=== PATIENT | female | born 1975 | race Hispanic/Latino ===

== ENCOUNTER 2017-09-23 15:20 | Emergency (ER) | payer OTHER ==
[2017-09-23 16:46] LABS: Absolute Lymphocytes (CBC) 1.7 K/uL (0.7-4.9); Absolute Monocytes 0.6 K/uL (0.1-1.3); Absolute Neutrophil 8.1 K/uL (1.8-8.0); Basophils % 0.6 % (0-1.3); Eosinophils % 0.4 % (0-4.4); Hematocrit 48.7 % (36.0-45.0); Lymphocytes % 16.4 % (15.3-44.8); MCH 30.2 pg (27.0-35.0); MPV 12.2 fL (7.6-11.3); Monocytes % 5.3 % (3.3-12.3); RBC Red Blood Cell Count 5.41 M/uL (3.86-4.86)
[2017-09-23 16:56] LABS: Glucose Level 135 mg/dL (65-120)
[2017-09-23] MEDS ORDERED: PANTOPRAZOLE 40 MG INJ ONE (16:56)
[2017-09-23] MEDS ORDERED: NA CHLORIDE 0.9% 1,000 ML ONE (16:56)
[2017-09-23 17:03] LABS: ALT/SGPT 37 IU/L (10-60); AST/SGOT 27 IU/L (10-42); Albumin 4.6 g/dL (3.2-5.5); Alkaline Phosphatase 54 IU/L (42-121); BUN Blood Urea Nitrogen 9 mg/dL (6-20); Bilirubin Direct 0.2 mg/dL (0-0.2); Bilirubin Total 1.2 mg/dL (0.3-1.2); Glomerular Filtration Rate > 90 mL/min (=/>90); Protein, Total 8.1 g/dL (6.0-8.3)
[2017-09-23 17:09] LABS: Bicarbonate 28 mEq/L (21-31); Sodium Level 137 mEq/L (135-145)
[2017-09-23 17:31] LABS: Potassium 2.7 mEq/L (3.6-5.0)
--- NOTE | 2017-09-23 17:45 | RAD REPORT ---
EXAM DESCRIPTION: RAD - Chest Pa And Lat (2 Views) - 09/23/2017 4:53 pm CLINICAL HISTORY: Chest pain. COMPARISON: 08/15/2011 FINDINGS: The lungs are clear. The heart is normal in size. No displaced fractures. IMPRESSION: No acute or concerning finding suspected.
[2017-09-23] MEDS ORDERED: POTASSIUM CL SA 10 MEQ TAB PO ONE (18:03)
[2017-09-23] MEDS ORDERED: KCL 20 MEQ/100 mL IVPB 20 MEQ/100 ML BAG IV ONE (18:04)
--- NOTE | 2017-09-23 19:56 | ER ---
Nurse's Notes [facility] Name: Ami Will Age: 42 yrs Sex: Female : 1975 Arrival Date: 09/23/2017 Time: 15:20 Bed 8 Private MD: Chantel Corona K Diagnosis: Chest pain, unspecified;Hypokalemia Presentation: 09/23 15:28 Presenting complaint: Patient states: Chest tightness and nausea x 1 hr. Pain does not hb radiate. Denies SOB. Hx GERD, hiatal hernia. Transition of care: patient was not received from another setting of care. Onset of symptoms was September 23, 2017. Care prior to arrival: None. 15:28 Method Of Arrival: Ambulatory hb 15:28 Acuity: SANTIAGO 3 hb Triage Assessment: 15:29 General: Appears in no apparent distress. Behavior is calm, cooperative. Pain: Pain hb currently is 4 out of 10 on a pain scale. Neuro: Level of Consciousness is awake, alert, obeys commands, Oriented to person, place, time, situation. Cardiovascular: Capillary refill < 3 seconds Patient's skin is warm and dry. Respiratory: Airway is patent Respiratory effort is even, unlabored, Respiratory pattern is regular, symmetrical. 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 - Social history:: Smoking status: Patient/guardian denies using tobacco. Screenin:32 Abuse screen: Denies threats or abuse. Nutritional screening: No deficits noted. la1 Tuberculosis screening: No symptoms or risk factors identified. Fall Risk None identified. Assessment: 16:31 General: Appears in no apparent distress. Behavior is calm, cooperative. Pain: la1 Complains of pain in chest Pain does not radiate. Pain currently is 4 out of 10 on a pain scale. Pain began 2 hours ago. Neuro: Level of Consciousness is awake, alert, obeys commands, Oriented to person, place, time, situation. Cardiovascular: Heart tones S1 S2 present Capillary refill < 3 seconds Patient's skin is warm and dry. Respiratory: Airway is patent Respiratory effort is even, unlabored, Respiratory pattern is regular, symmetrical, Breath sounds are clear bilaterally. GI: No signs and/or symptoms were reported involving the gastrointestinal system. : No signs and/or symptoms were reported regarding the genitourinary system. 17:34 Reassessment: No changes from previously documented assessment. Patient and/or family la1 updated on plan of care and expected duration. Pain level reassessed. Patient is alert, oriented x 3, equal unlabored respirations, skin warm/dry/pink. 18:45 Reassessment: No changes from previously documented assessment. Patient and/or family la1 updated on plan of care and expected duration. Pain level reassessed. Patient is alert, oriented x 3, equal unlabored respirations, skin warm/dry/pink. 20:57 Reassessment: Patient appears in no apparent distress at this time. No changes from la1 previously documented assessment. Patient and/or family updated on plan of care and expected duration. Pain level reassessed. Patient is alert, oriented x 3, equal unlabored respirations, skin warm/dry/pink. Vital Signs: 15:29 BP 178 / 106; Pulse 97; Resp 16; Temp 98.1; Pulse Ox 100% on R/A; Weight 77.11 kg; hb Height 5 ft. 4 in. (162.56 cm); Pain 4/10; 17:48 BP 158 / 90; Pulse 93; Resp 16; Pulse Ox 100% on R/A; la1 18:45 BP 145 / 91; Pulse 84; Resp 16; Pulse Ox 100% on R/A; la1 20:57 BP 151 / 74; Pulse 76; Resp 16; Temp 98.3; Pulse Ox 100% on R/A; la1 15:29 Body Mass Index 29.18 (77.11 kg, 162.56 cm) hb ED Course: 15:20 Patient arrived in ED. as 15:21 Chantel Corona MD is Private Physician. as 15:29 Triage completed. hb 15:29 Arm band placed on right wrist. hb 15:33 EKG completed in triage. Results shown to MD. hb 16:20 Azul Fierro [facility]-C [facility]. snw 16:20 Jessee Chung MD is Attending Physician. snw 16:20 Jostin Hamm, RN is Primary Nurse. la1 16:32 Placed in gown. Bed in low position. Call light in reach. court monitor on. Pulse ox la1 on. NIBP on. 16:32 No provider procedures requiring assistance completed. Inserted saline lock: 22 gauge la1 in left antecubital area, using aseptic technique. Blood collected. Patient maintains SpO2 saturation greater than 95% on room air. 16:52 Chest Pa And Lat (2 Views) XRAY In Process Unspecified. EDMS 16:53 Patient taken to an exam room, via wheelchair, Patient moved back from radiology. kp1 16:53 X-ray completed. Patient tolerated procedure well. kp1 19:54 Chatnel Corona MD is Referral Physician. snw 20:58 IV discontinued, intact, bleeding controlled, No redness/swelling at site. Pressure la1 dressing applied. Administered Medications: 16:41 Drug: NS 0.9% 1000 ml Route: IV; Rate: 75 ml/hr; Site: left antecubital; la1 20:58 Follow up: IV Status: Completed infusion la1 16:41 Drug: ProTONIX 40 mg Route: IVP; Site: left antecubital; la1 18:57 Follow up: Response: No adverse reaction la1 17:47 Drug: Potassium Chloride 20 mEq Route: IV; Rate: calculated rate; Site: left la1 antecubital; 20:58 Follow up: IV Status: Completed infusion la1 17:48 Drug: Potassium Chloride 40 mEq Route: PO; la1 18:56 Follow up: Response: No adverse reaction la1 Outcome: 19:55 Discharge ordered by MD. snw 20:58 Discharged to home ambulatory. la1 20:58 Condition: stable 20:58 Discharge instructions given to patient, Instructed on discharge instructions, follow up and referral plans. medication usage, Demonstrated understanding of instructions, follow-up care, medications, Prescriptions given X 2. 20:58 Patient left the ED. la1 Signatures: Dispatcher [employer] EDPR Azul Fierro FNP-C LINE WORKER-Rosa Maria Ovalle Lee RN RN la1 Beatriz Acharya RN RN hb Poole, Kathy kp1
--- NOTE | 2017-09-23 19:56 | EDPHYS ---
Physician Documentation [facility] Name: Ami Will Age: 42 yrs Sex: Female : 1975 Arrival Date: 09/23/2017 Time: 15:20 Bed 8 Private MD: Chantel Corona K ED Physician Jessee Chung HPI: 09/23 17:05 This 42 yrs old Female presents to ER via Ambulatory with complaints of Chest snw Pain. 17:05 The patient or guardian reports chest pain that is located primarily in the anterior snw chest wall, bilaterally. Onset: suddenly, one hour post eating, hx of hiatal hernia. The pain does not radiate. Associated signs and symptoms: The patient has no apparent associated signs or symptoms. The chest pain is described as a heaviness, causing indigestion. Duration: The patient or guardian reports a single episode, that is now resolved. Severity of pain: At its worst the pain was mild moderate. EMS care prior to arrival includes: n/a. The patient has not experienced similar symptoms in the past. It is unknown whether or not the patient has recently seen a physician. 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 - Social history:: Smoking status: Patient/guardian denies using tobacco. ROS: 17:04 Constitutional: Negative for fever, chills, and weight loss, Eyes: Negative for injury, snw pain, redness, and discharge, ENT: Negative for injury, pain, and discharge, Neck: Negative for injury, pain, and swelling, Respiratory: Negative for shortness of breath, cough, wheezing, and pleuritic chest pain, Abdomen/GI: Negative for abdominal pain, nausea, vomiting, diarrhea, and constipation, Back: Negative for injury and pain, : Negative for injury, bleeding, discharge, and swelling, MS/Extremity: Negative for injury and deformity, Skin: Negative for injury, rash, and discoloration, Neuro: Negative for headache, weakness, numbness, tingling, and seizure. 17:04 Cardiovascular: Positive for chest pain. Exam: 17:04 Constitutional: This is a well developed, well nourished patient who is awake, alert, snw and in no acute distress. Head/Face: Normocephalic, atraumatic. Eyes: Pupils equal round and reactive to light, extra-ocular motions intact. Lids and lashes normal. Conjunctiva and sclera are non-icteric and not injected. Cornea within normal limits. Periorbital areas with no swelling, redness, or edema. ENT: Nares patent. No nasal discharge, no septal abnormalities noted. Tympanic membranes are normal and external auditory canals are clear. Oropharynx with no redness, swelling, or masses, exudates, or evidence of obstruction, uvula midline. Mucous membranes moist. Neck: Trachea midline, no thyromegaly or masses palpated, and no cervical lymphadenopathy. Supple, full range of motion without nuchal rigidity, or vertebral point tenderness. No Meningismus. Chest/axilla: Normal chest wall appearance and motion. Nontender with no deformity. No lesions are appreciated. Cardiovascular: Regular rate and rhythm with a normal S1 and S2. No gallops, murmurs, or rubs. Normal PMI, no JVD. No pulse deficits. Respiratory: Lungs have equal breath sounds bilaterally, clear to auscultation and percussion. No rales, rhonchi or wheezes noted. No increased work of breathing, no retractions or nasal flaring. Abdomen/GI: Soft, non-tender, with normal bowel sounds. No distension or tympany. No guarding or rebound. No evidence of tenderness throughout. Negative Miramontes's Back: No spinal tenderness. No costovertebral tenderness. Full range of motion. Skin: Warm, dry with normal turgor. Normal color with no rashes, no lesions, and no evidence of cellulitis. MS/ Extremity: Pulses equal, no cyanosis. Neurovascular intact. Full, normal range of motion. Neuro: Awake and alert, GCS 15, oriented to person, place, time, and situation. Cranial nerves II-XII grossly intact. Motor strength 5/5 in all extremities. Sensory grossly intact. Cerebellar exam normal. Normal gait. Vital Signs: 15:29 BP 178 / 106; Pulse 97; Resp 16; Temp 98.1; Pulse Ox 100% on R/A; Weight 77.11 kg; hb Height 5 ft. 4 in. (162.56 cm); Pain 4/10; 17:48 BP 158 / 90; Pulse 93; Resp 16; Pulse Ox 100% on R/A; la1 18:45 BP 145 / 91; Pulse 84; Resp 16; Pulse Ox 100% on R/A; la1 20:57 BP 151 / 74; Pulse 76; Resp 16; Temp 98.3; Pulse Ox 100% on R/A; la1 15:29 Body Mass Index 29.18 (77.11 kg, 162.56 cm) hb MDM: 16:20 Patient medically screened. snw 19:57 ECG:. Data reviewed: vital signs, nurses notes, lab test result(s), EKG, radiologic snw studies. Counseling: I had a detailed discussion with the patient and/or guardian regarding: the historical points, exam findings, and any diagnostic results supporting the discharge/admit diagnosis, the presence of at least one elevated blood pressure reading (>120/80) during this emergency department visit, lab results, radiology results, the need for outpatient follow up, to return to the emergency department if symptoms worsen or persist or if there are any questions or concerns that arise at home. Response to treatment: the patient's symptoms have markedly improved after treatment. Special discussion: Based on the patient's history, exam, and Dx evaluation, there is no indication for emergent intervention or inpatient Tx. It is understood by the patient/guardian that if the Sx's persist or worsen they need to return immediately for re-evaluation. I have referred the patient to see his PCP for further evaluation of high blood pressure. Based on the history and exam findings, there is no indication for further emergent testing or inpatient evaluation. I discussed with the patient/guardian the need to see the primary care provider for further evaluation of the symptoms. 09/23 16:24 Order name: CBC with Diff; Complete Time: 16:52 snw 09/23 16:24 Order name: Chem 7; Complete Time: 17:32 snw 09/23 16:24 Order name: Troponin (emerg Dept Use Only); Complete Time: 17:06 snw 09/23 16:24 Order name: Chest Pa And Lat (2 Views) XRAY; Complete Time: 17:49 snw 09/23 16:24 Order name: LFT's; Complete Time: 17:32 snw 09/23 15:31 Order name: EKG - Nurse/Tech; Complete Time: 15:46 hb 09/23 15:31 Order name: EKG; Complete Time: 15:32 hb 09/23 17:04 Order name: Misc. Order: please change ivf rate to bolus; Complete Time: 17:06 snw Administered Medications: 16:41 Drug: NS 0.9% 1000 ml Route: IV; Rate: 75 ml/hr; Site: left antecubital; la1 20:58 Follow up: IV Status: Completed infusion la1 16:41 Drug: ProTONIX 40 mg Route: IVP; Site: left antecubital; la1 18:57 Follow up: Response: No adverse reaction la1 17:47 Drug: Potassium Chloride 20 mEq Route: IV; Rate: calculated rate; Site: left la1 antecubital; 20:58 Follow up: IV Status: Completed infusion la1 17:48 Drug: Potassium Chloride 40 mEq Route: PO; la1 18:56 Follow up: Response: No adverse reaction la1 Disposition: 09/24 07:06 Co-signature as Attending Physician, Jessee Chung MD. rn Disposition: 09/23/17 19:55 Discharged to Home. Impression: Chest pain, unspecified, Hypokalemia. - Condition is Stable. - Discharge Instructions: Nonspecific Chest Pain, Potassium Content of Foods, Hypertension, Nonspecific Chest Pain, [id number], Hypokalemia. - Prescriptions for Zofran 4 mg Oral Tablet - take 1 tablet by ORAL route every 12 hours As needed; 6 tablet. Potassium Chloride 20 meq Oral Packet - take 1 packet by ORAL route once daily 1 packet in 6 (six) ounces of water or juice; Take after meal; 30 packet. - Work release form, Medication Reconciliation Form, Thank You Letter, Antibiotic Education, Prescription Opioid Use form. - Follow up: Chantel Corona MD; When: 1 week; Reason: Recheck today's complaints, Continuance of care, Re-evaluation by your physician. Follow up: Emergency Department; When: As needed; Reason: Worsening of condition. Signatures: Dispatcher [employer] EDHI Azul Fierro, LOOP TACKER-C LOOP TACKER-Csnw Jessee Chung MD MD rn Attema, Lee, RN RN la1 Beatriz Acharya RN RN Corrections: (The following items were deleted from the chart) 09/23 17:05 17:04 Constitutional: This is a well developed, well nourished patient who is awake, snw alert, and in no acute distress. Head/Face: Normocephalic, atraumatic. Eyes: Pupils equal round and reactive to light, extra-ocular motions intact. Lids and lashes normal. Conjunctiva and sclera are non-icteric and not injected. Cornea within normal limits. Periorbital areas with no swelling, redness, or edema. ENT: Nares patent. No nasal discharge, no septal abnormalities noted. Tympanic membranes are normal and external auditory canals are clear. Oropharynx with no redness, swelling, or masses, exudates, or evidence of obstruction, uvula midline. Mucous membranes moist. Neck: Trachea midline, no thyromegaly or masses palpated, and no cervical lymphadenopathy. Supple, full range of motion without nuchal rigidity, or vertebral point tenderness. No Meningismus. Chest/axilla: Normal chest wall appearance and motion. Nontender with no deformity. No lesions are appreciated. Cardiovascular: Regular rate and rhythm with a normal S1 and S2. No gallops, murmurs, or rubs. Normal PMI, no JVD. No pulse deficits. Respiratory: Lungs have equal breath sounds bilaterally, clear to auscultation and percussion. No rales, rhonchi or wheezes noted. No increased work of breathing, no retractions or nasal flaring. Abdomen/GI: Soft, non-tender, with normal bowel sounds. No distension or tympany. No guarding or rebound. No evidence of tenderness throughout. Back: No spinal tenderness. No costovertebral tenderness. Full range of motion. Skin: Warm, dry with normal turgor. Normal color with no rashes, no lesions, and no evidence of cellulitis. MS/ Extremity: Pulses equal, no cyanosis. Neurovascular intact. Full, normal range of motion. Neuro: Awake and alert, GCS 15, oriented to person, place, time, and situation. Cranial nerves II-XII grossly intact. Motor strength 5/5 in all extremities. Sensory grossly intact. Cerebellar exam normal. Normal gait. snw
[2017-09-23 21:03] VITALS: O2SAT 100
[2017-09-23 21:07] VITALS: BP 151/74; TEMP 98.3
--- NOTE | 2017-09-23 21:47 | EKG ---
Test Date: 2017-09-23 Test Time: 15:42:56 Skein Inspector: CHAKA MEASUREMENT RESULTS: Intervals: Rate: 85 MN: 132 QRSD: 84 QT: 366 QTc: 435 [place]: P: 64 MN: 132 QRS: -30 T: 15 INTERPRETIVE STATEMENTS: Normal sinus rhythm Left axis deviation Inferior infarct, age undetermined Anterolateral infarct, age undetermined Abnormal ECG Compared to ECG 08/14/2011 22:14:28 Left-axis deviation now present Myocardial infarct finding now present T-wave abnormality no longer present Electronically Signed On 09-23-17 21:47:35 CDT by Sunday Felix
== END 2017-09-23 20:58 | disposition home or self-care (01) ==
LOC: ER 15:20
DX: E87.6 Hypokalemia (principal); K21.9 Gastro-esophageal reflux disease without esophagitis
CPT/HCPCS: 36415; 71046; 80048; 80076; 84484; 85025; 93005; 96361; 96365; 96366; 96375; 99285; C9113; J7030

== ENCOUNTER 2018-08-28 19:49 | Emergency (ER) | payer OTHER ==
--- NOTE | 2018-08-28 20:58 | RAD REPORT ---
EXAM DESCRIPTION: CT - [id number] - 08/28/2018 8:50 pm CLINICAL HISTORY: Trauma, head and neck injury. PAIN COMPARISON: <Comparisons> TECHNIQUE: Axial 5 mm thick images of the head were obtained. Axial 2 mm thick images of the cervical spine were obtained with sagittal and coronal reconstruction images generated and reviewed. All CT scans are performed using dose optimization technique as appropriate and may include automated exposure control or mA/KV adjustment according to patient size. FINDINGS: CT HEAD WITHOUT CONTRAST: No acute hemorrhage, hydrocephalus or extra-axial collection is identified.No areas of brain edema or midline shift. The paranasal sinuses and mastoids are clear.The calvarium is intact. CT CERVICAL SPINE WITHOUT CONTRAST: No fracture or subluxation.No prevertebral soft tissues swelling is identified. IMPRESSION: No acute intracranial or cervical spine findings.
--- NOTE | 2018-08-28 21:20 | ER ---
Nurse's Notes [facility] Name: Ami Will Age: 43 yrs Sex: Female : 1975 Arrival Date: 08/28/2018 Time: 19:52 Bed 10 Private MD: Chantel Corona K Diagnosis: Headache Presentation: 08/28 19:59 Presenting complaint: Patient states: "I have a discomfort in the back of my left side jd3 of my head and going through my neck off and on for the past couple of weeks.". Transition of care: patient was not received from another setting of care. Onset of symptoms was August 28, 2018. Risk Assessment: Do you want to hurt yourself or someone else? Patient reports no desire to harm self or others. Initial Sepsis Screen: Does the patient meet any 2 criteria? No. Patient's initial sepsis screen is negative. Does the patient have a suspected source of infection? No. Patient's initial sepsis screen is negative. Care prior to arrival: None. 19:59 Method Of Arrival: Ambulatory j 19:59 Acuity: SANTIAGO 4 jd3 HUMAN RESOURCES CONSULTANT: 20:01 LMP 08/04/2018 jd3 Historical: - Allergies: 20:01 No Known Allergies; jd3 - Home Meds: 20:01 metoprolol tartrate Oral [Active]; Prilosec Oral [Active]; jd3 - PMHx: 20:01 GERD; jd3 - PSHx: 20:01 None; jd3 - Immunization history:: Adult Immunizations up to date. - Social history:: Smoking status: Patient/guardian denies using tobacco, Patient/guardian denies using alcohol, street drugs, The patient lives with family. - Ebola Screening: : Patient negative for fever greater than or equal to 101.5 degrees Fahrenheit, and additional compatible Ebola Virus Disease symptoms. - Family history:: not pertinent. Screenin:40 Abuse screen: Denies threats or abuse. Denies injuries from another. Nutritional ao screening: No deficits noted. Tuberculosis screening: No symptoms or risk factors identified. Fall Risk None identified. Assessment: 20:35 General: Appears in no apparent distress. comfortable, well groomed, well developed, ao Behavior is calm, cooperative, appropriate for age. Pain: Complains of pain in Headache as described by patient. Neuro: Level of Consciousness is awake, alert, obeys commands, Reports headache parietal area. Cardiovascular: Capillary refill < 3 seconds Patient's skin is warm and dry. Rhythm is regular. Respiratory: Airway is patent Respiratory effort is even, unlabored, Respiratory pattern is regular, symmetrical. GI: No deficits noted. Abdomen is non-distended. : No signs and/or symptoms were reported regarding the genitourinary system. EENT: No signs and/or symptoms were reported regarding the EENT system. Derm: Skin is intact, Skin is pink, warm \\T\\ dry. normal, Skin temperature is warm. Musculoskeletal: Circulation, motion, and sensation intact. Range of motion:. 21:30 Reassessment: Dc instructions given to patient and significant other. Patient and ao significant other asked to see the doctor. Dr Mane was notified. No question at this time. DC pending for Dr Mane to see the patient. 21:35 Reassessment: Dr Mane at bedside talking to patient. ao Vital Signs: 20:01 BP 164 / 91; Pulse 84; Resp 16 S; Temp 97.4(TE); Pulse Ox 100% on R/A; Weight 71.67 kg jd3 (R); Height 5 ft. 4 in. (162.56 cm) (R); Pain 5/10; 21:43 Pulse 83; Resp 20; Pulse Ox 98% on R/A; ao 20:01 Body Mass Index 27.12 (71.67 kg, 162.56 cm) jd3 Rebekah Coma Score: 20:42 Eye Response: spontaneous(4). Verbal Response: oriented(5). Motor Response: obeys ma2 commands(6). Total: 15. ED Course: 19:52 Patient arrived in ED. mr 19:53 Chantel Corona MD is Private Physician. mr 20:00 Triage completed. jd3 20:02 Arm band placed on. jd3 20:07 Jas Mane MD is Attending Physician. ma2 20:39 Boston Skinner, SHANON is Primary Nurse. ao 20:[address] via wheelchair. eh 20:41 Patient has correct armband on for positive identification. Pulse ox on. NIBP on. ao 20:49 CT completed. Patient tolerated procedure well. Patient moved back from CT. eh 20:50 CT Head C Spine In Process Unspecified. EDMS 21:42 No provider procedures requiring assistance completed. Patient did not have IV access ao during this emergency room visit. Administered Medications: No medications were administered Outcome: 21:20 Discharge ordered by . carole 21:42 Discharged to home ambulatory. ao 21:42 Condition: stable 21:42 Discharge instructions given to patient, family, Instructed on discharge instructions, follow up and referral plans. Demonstrated understanding of instructions, follow-up care, medications, Prescriptions given X 2. 21:43 Patient left the ED. ao Signatures: Dispatcher [employer] EDCT Greer Disla, Boston Macedo RN RN Titus Chery RN RN Jas Jackson MD MD ma2 Corrections: (The following items were deleted from the chart) 20:06 19:59 Acuity: SANTIAGO 3 jd3 jd3
--- NOTE | 2018-08-28 21:21 | EDPHYS ---
Physician Documentation [facility] Name: Ami Will Age: 43 yrs Sex: Female : 1975 Arrival Date: 08/28/2018 Time: 19:52 Bed 10 Private MD: Chantel Corona K ED Physician Jas Mane HPI: 08/28 20:42 This 43 yrs old Female presents to ER via Ambulatory with complaints of Head ma2 and Neck Discomfort. 20:42 The patient complains of pain to the left shinto. Onset: The symptoms/episode ma2 began/occurred gradually, 2 month(s) ago. Associated signs and symptoms: Pertinent negatives: there are no associated signs or symptoms. altered mental status, dizziness, malaise, neck stiffness, Photophobia vision changes, vision loss, weakness, vertigo. Headache History: Denies prior headaches. The patient has not experienced similar symptoms in the past. here with left scalp pain and tenderness that is intermittent for the last 2 month, used to have neck pain that resolved, scalp pain is worse when she turn to the left side.. right now she has no new symptoms and declined pain control in er.. i explained that is challenging to find a cause of pain here however will rule out emergency and she will need step by step workup that may include c-spine mri as outpatient . 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 - Social history:: Smoking status: Patient/guardian denies using tobacco, Patient/guardian denies using alcohol, street drugs, The patient lives with family. - Ebola Screening: : Patient negative for fever greater than or equal to 101.5 degrees Fahrenheit, and additional compatible Ebola Virus Disease symptoms. - Family history:: not pertinent. ROS: 20:42 Constitutional: Negative for fever, chills, and weight loss. ma2 20:42 Neck: Positive for 20:42 All other systems are negative. Exam: 20:42 Constitutional: This is a well developed, well nourished patient who is awake, alert, ma2 and in no acute distress. Head/Face: Normocephalic, atraumatic. Eyes: Pupils equal round and reactive to light, extra-ocular motions intact. Lids and lashes normal. Conjunctiva and sclera are non-icteric and not injected. Cornea within normal limits. Periorbital areas with no swelling, redness, or edema. ENT: Nares patent. No nasal discharge, no septal abnormalities noted. Tympanic membranes are normal and external auditory canals are clear. Oropharynx with no redness, swelling, or masses, exudates, or evidence of obstruction, uvula midline. Mucous membranes moist. Neck: Trachea midline, no thyromegaly or masses palpated, and no cervical lymphadenopathy. Supple, full range of motion without nuchal rigidity, or vertebral point tenderness. No Meningismus. Chest/axilla: Normal chest wall appearance and motion. Nontender with no deformity. No lesions are appreciated. Cardiovascular: Regular rate and rhythm with a normal S1 and S2. No gallops, murmurs, or rubs. Normal PMI, no JVD. No pulse deficits. Respiratory: Lungs have equal breath sounds bilaterally, clear to auscultation and percussion. No rales, rhonchi or wheezes noted. No increased work of breathing, no retractions or nasal flaring. Abdomen/GI: Soft, non-tender, with normal bowel sounds. No distension or tympany. No guarding or rebound. No evidence of tenderness throughout. Back: No spinal tenderness. No costovertebral tenderness. Full range of motion. MS/ Extremity: Pulses equal, no cyanosis. Neurovascular intact. Full, normal range of motion. Neuro: Awake and alert, GCS 15, oriented to person, place, time, and situation. Cranial nerves II-XII grossly intact. Motor strength 5/5 in all extremities. Sensory grossly intact. Cerebellar exam normal. Normal gait. Vital Signs: 20:01 BP 164 / 91; Pulse 84; Resp 16 S; Temp 97.4(TE); Pulse Ox 100% on R/A; Weight 71.67 kg jd3 (R); Height 5 ft. 4 in. (162.56 cm) (R); Pain 5/10; 21:43 Pulse 83; Resp 20; Pulse Ox 98% on R/A; ao 20:01 Body Mass Index 27.12 (71.67 kg, 162.56 cm) jd3 [place] Coma Score: 20:42 Eye Response: spontaneous(4). Verbal Response: oriented(5). Motor Response: obeys ma2 commands(6). Total: 15. MDM: 20:07 Patient medically screened. ma2 20:42 Differential diagnosis: sinusitis, trigeminal neuralgia, vasomotor headache. ma2 21:19 Data reviewed: vital signs, nurses notes. Counseling: I had a detailed discussion with ma2 the patient and/or guardian regarding: the historical points, exam findings, and any diagnostic results supporting the discharge/admit diagnosis, the presence of at least one elevated blood pressure reading (>120/80) during this emergency department visit, the need for outpatient follow up. 08/28 20:34 Order name: CT Head C Spine; Complete Time: 21:14 ma2 Administered Medications: No medications were administered Disposition: 08/28/18 21:20 Discharged to Home. Impression: Headache. - Condition is Stable. - Discharge Instructions: General Headache Without Cause, Neuropathic Pain. - Prescriptions for Neurontin 300 mg Oral Capsule - take 1 capsule by ORAL route At bedtime; 20 capsule. Reglan 10 mg Oral Tablet - take 1 tablet by ORAL route every 6 hours . take 30 minutes before meals and at bedtime; 100 tablet. - Medication Reconciliation Form, Thank You Letter, Antibiotic Education, Prescription Opioid Use form. - Follow up: Private Physician; When: Tomorrow; Reason: Continuance of care. Signatures: Dispatcher [employer] [place] Cormier RN RN ao Davies, Jonathon, RN RN jd3 Alzahri, Mohammad, MD MD ma2 Corrections: (The following items were deleted from the chart) 21:43 21:20 08/28/2018 21:20 Discharged to Home. Impression: Headache. Condition is Stable. ao Prescriptions for Neurontin 300 mg Oral Capsule - take 1 capsule by ORAL route At bedtime; 20 capsule. and Forms are Medication Reconciliation Form, Thank You Letter, Antibiotic Education, Prescription Opioid Use. Follow up: Private Physician; When: Tomorrow; Reason: Continuance of care. ma2
[2018-08-28 22:21] VITALS: BP 164/91; TEMP 97.4; O2SAT 100
== END 2018-08-28 21:43 | disposition home or self-care (01) ==
LOC: ER 19:49
DX: R51 Headache (principal); K21.9 Gastro-esophageal reflux disease without esophagitis
CPT/HCPCS: 70450; 72125; 99284

== ENCOUNTER 2020-04-30 20:38 | Emergency (ER) | payer BC, OTHER ==
--- OUTSIDE RECORDS SUMMARY | 2020-04-30 20:40 | XMS REPORT | Continuity of Care Document ---
:1975 Author Organization Formerly [facility] t Address [address] [place] [address] Care Team Providers Name Role Phone Lab, Fam Pob I Attending Clinician Unavailable Doctor Unassigned, Name Attending Clinician Unavailable Problems This patient has no known problems. Allergies, Adverse Reactions, Alerts This patient has no known allergies or adverse reactions. Medications This patient has no known medications. Procedures This patient has no known procedures. Encounters Start End Encounter Admission Attending Care Care Encounter Source Date/Time Date/Time Type Type Clinicians Facility Department ID 2020-01-15 2020-01-15 Laboratory Lab, [facility] [id number] 08:26:47 08:46:47 Only Fam Pob I Health [id number] [place] [id number] [place] [id number] [address] 2020-01-15 2020-01-15 Letter Doctor ADORE [id number] 00:00:00 00:00:00 (Out) Unassigned[place] [id number] [place] [facility] [phone] [id number] Results This patient has no known results.
[2020-04-30] MEDS ORDERED: METOCLOPRAMIDE 10 MG/2mL INJ ONE (21:44)
[2020-04-30] MEDS ORDERED: KETOROLAC 30 MG/ML INJ ONE (21:45)
[2020-04-30 21:46] LABS: Urine Blood 3+ (NEG); Urine Glucose NEGATIVE (NEG); Urine Protein NEGATIVE (NEG)
[2020-04-30] MEDS ORDERED: DIPHENHYDRAMINE 50 MG/ML VIAL ONE (21:46)
[2020-04-30 22:06] LABS: Absolute Lymphocytes (CBC) 2.8 K/uL (0.7-4.9); Basophils % 1.4 % (0-1.3); Hematocrit 43.6 % (36.0-45.0); Lymphocytes % 24.1 % (15.3-44.8); MPV 12.1 fL (7.6-11.3); RBC Red Blood Cell Count 4.87 M/uL (3.86-4.86)
[2020-04-30 22:20] LABS: ALT/SGPT 53 U/L (12-78); AST/SGOT 22 U/L (15-37); Albumin 3.9 g/dL (3.4-5.0); Alkaline Phosphatase 71 U/L (45-117); BUN Blood Urea Nitrogen 6 mg/dL (7-18); Bicarbonate 26 mmol/L (21-32); Bilirubin Total 1.3 mg/dL (0.2-1.0); Glucose Level 153 mg/dL (74-106); Potassium 3.5 mmol/L (3.5-5.1); Protein, Total 7.7 g/dL (6.4-8.2); Sodium Level 142 mmol/L (136-145)
[2020-04-30] MEDS ORDERED: CEFTRIAXONE/SWI 1gm 1 GM/10 ML SYR ONE (22:28)
--- NOTE | 2020-04-30 23:27 | ER ---
Nurse's Notes [facility] Name: Ami Will Age: 44 yrs Sex: Female : 1975 Arrival Date: 04/30/2020 Time: 20:40 Bed 14 Private MD: Diagnosis: Strain of muscle, fascia and tendon at neck level;Headache;Urinary tract infection, site not specified Presentation: 04/30 21:04 Chief complaint: Patient states: she has been having head pain and neck pain bb intermittently x 1 month has seen her doctor and is waiting on a referral to a neurologist but the pain is getting worse she has had similar symptoms in the past and was given gabapentin but the pain went away so she quit taking it. Coronavirus screen: At this time, the client does not indicate any symptoms associated with coronavirus-19. Ebola Screen: No symptoms or risks identified at this time. Initial Sepsis Screen: Does the patient meet any 2 criteria? No. Patient's initial sepsis screen is negative. Does the patient have a suspected source of infection? No. Patient's initial sepsis screen is negative. Risk Assessment: Do you want to hurt yourself or someone else? Patient reports no desire to harm self or others. Onset of symptoms was March 2020. 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 - Social history:: Smoking status: Patient denies any tobacco usage or history of. Patient uses alcohol, occasionally. Patient/guardian denies using street drugs. - Family history:: not pertinent. Screenin:15 Abuse screen: Denies threats or abuse. Nutritional screening: No deficits noted. jb4 Tuberculosis screening: No symptoms or risk factors identified. Fall Risk None identified. Assessment: 21:15 General: Appears in no apparent distress. uncomfortable, Behavior is calm, cooperative, jb4 appropriate for age. Pain: Complains of pain in base of the skull and neck Pain does not radiate. Pain currently is 5 out of 10 on a pain scale. Quality of pain is described as throbbing, Pain began 7 days ago. Neuro: Level of Consciousness is awake, alert, obeys commands, Oriented to person, place, time, situation. Cardiovascular: Patient's skin is warm and dry. Respiratory: Airway is patent Respiratory effort is even, unlabored, Respiratory pattern is regular, symmetrical. GI: No signs and/or symptoms were reported involving the gastrointestinal system. : No signs and/or symptoms were reported regarding the genitourinary system. EENT: No signs and/or symptoms were reported regarding the EENT system. Derm: Skin is intact, Skin is pink, warm \T\ dry. Musculoskeletal: Circulation, motion, and sensation intact. Range of motion:. 22:30 Reassessment: Patient appears in no apparent distress at this time. Patient and/or jb4 family updated on plan of care and expected duration. Pain level reassessed. Patient is alert, oriented x 3, equal unlabored respirations, skin warm/dry/pink. 23:49 Reassessment: Patient appears in no apparent distress at this time. Patient and/or jb4 family updated on plan of care and expected duration. Pain level reassessed. Patient is alert, oriented x 3, equal unlabored respirations, skin warm/dry/pink. D/c pending visitation with provider to explain diagnoses. 05/01 00:26 Reassessment: Patient appears in no apparent distress at this time. Patient and/or jb4 family updated on plan of care and expected duration. Pain level reassessed. Patient is alert, oriented x 3, equal unlabored respirations, skin warm/dry/pink. Vital Signs: 04/30 21:04 BP 167 / 88; Pulse 66; Resp 16 S; Temp 97.9(O); Pulse Ox 100% on R/A; Weight 83.91 kg bb (R); Height 5 ft. 4 in. (162.56 cm) (R); Pain 5/10; 22:45 BP 124 / 65; Pulse 67; Resp 16; Pulse Ox 97% on R/A; jb4 05/01 00:00 BP 129 / 77; Pulse 70; Resp 16; Pulse Ox 99% on R/A; jb4 04/30 21:04 Body Mass Index 31.75 (83.91 kg, 162.56 cm) ED Course: 04/30 20:40 Patient arrived in ED. cl3 21:00 Jere Sharpe MD is Attending Physician. qian 21:06 Triage completed. bb 21:07 Arm band placed on Patient placed in an exam room, on a stretcher, on pulse oximetry. bb Family accompanied patient. 21:11 Dayron Freeman, RN is Primary Nurse. jb4 21:15 Patient has correct armband on for positive identification. Bed in low position. Call jb4 light in reach. Side rails up X 1. Pulse ox on. NIBP on. 21:41 Chest Single View XRAY In Process Unspecified. EDMS 21:45 Initial lab(s) drawn, by wv, sent to lab. Inserted saline lock: 20 gauge in right jb4 antecubital area, using aseptic technique. Blood collected. 22:57 CT Head Angio In Process Unspecified. EDMS 22:57 CT Head Brain wo Cont In Process Unspecified. EDMS 22:57 Neck Angio In Process Unspecified. EDMS 23:26 Ciaran Figueroa MD is Referral Physician. [facility] 05/01 00:27 No provider procedures requiring assistance completed. IV discontinued, intact, jb4 bleeding controlled, No redness/swelling at site. Pressure dressing applied. Administered Medications: 04/30 21:55 Drug: TORadol 30 mg Route: IVP; Site: right antecubital; jb4 22:30 Follow up: Response: No adverse reaction; Pain is decreased jb4 21:55 Drug: Benadryl 25 mg Route: IVP; Site: right antecubital; jb4 22:30 Follow up: Response: No adverse reaction; Pain is decreased jb4 21:55 Drug: Reglan 10 mg Route: IVP; Site: right antecubital; jb4 22:30 Follow up: Response: No adverse reaction; Pain is decreased jb4 22:29 Drug: Rocephin 1 grams Route: IV; Rate: per protocol; Site: right antecubital; jb4 22:32 Follow up: IV Status: Completed infusion; IV Intake: 10ml jb4 23:00 Follow up: Response: No adverse reaction jb4 Intake: 22:32 IV: 10ml; Total: 10ml. jb4 Outcome: 23:26 Discharge ordered by . [facility] 05/01 00:28 Discharged to home ambulatory, with family. jb4 Condition: stable Discharge instructions given to patient, Instructed on discharge instructions, follow up and referral plans. medication usage, Demonstrated understanding of instructions, follow-up care, medications, Prescriptions given X 2. 00:29 Patient left the ED. jb4 Signatures: Dispatcher [employer] Jere Levy MD MD cha Ballard, Brenda, RN RN Dayron Samano RN RN jb4 [place] Ramachandran cl3
--- NOTE | 2020-04-30 23:27 | EDPHYS ---
Physician Documentation [facility] Name: Ami Will Age: 44 yrs Sex: Female : 1975 Arrival Date: 04/30/2020 Time: 20:40 Bed 14 Private MD: ED Physician Jere Sharpe HPI: 04/30 21:22 This 44 yrs old Female presents to ER via Ambulatory with complaints of Neck qian Problem. 21:22 This 44 yrs old Female presents to ER via Ambulatory with complaints of Neck qian Problem and right posterior headache. 21:22 The patient or guardian complains of pain, that is acute. The symptoms are located on qian the left parietal area and base of the skull. Onset: The symptoms/episode began/occurred 7 day(s) ago. Context: The problem was sustained at home, The neck injury/problem resulted from from unknown cause. Associated signs and symptoms: The patient has no apparent associated signs or symptoms. The pain does not radiate. Modifying factors: The symptoms are alleviated by nothing. Severity of symptoms: At their worst the symptoms were mild, in the emergency department the symptoms are unchanged. The patient has not experienced similar symptoms in the past. 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 - Social history:: Smoking status: Patient denies any tobacco usage or history of. Patient uses alcohol, occasionally. Patient/guardian denies using street drugs. - Family history:: not pertinent. ROS: 21:22 Constitutional: Negative for fever, chills, and weight loss, Eyes: Negative for injury, qian pain, redness, and discharge, ENT: Negative for injury, pain, and discharge, Neck: Negative for injury, pain, and swelling, Cardiovascular: Negative for chest pain, palpitations, and edema, Respiratory: Negative for shortness of breath, cough, wheezing, and pleuritic chest pain, Abdomen/GI: Negative for abdominal pain, nausea, vomiting, diarrhea, and constipation, Back: Negative for injury and pain, : Negative for injury, bleeding, discharge, and swelling, MS/Extremity: Negative for injury and deformity, Skin: Negative for injury, rash, and discoloration, Psych: Negative for depression, anxiety, suicide ideation, homicidal ideation, and hallucinations, Allergy/Immunology: Negative for hives, rash, and allergies, Endocrine: Negative for neck swelling, polydipsia, polyuria, polyphagia, and marked weight changes, Hematologic/Lymphatic: Negative for swollen nodes, abnormal bleeding, and unusual bruising. 21:22 Neuro: Positive for headache, of the left parietal area. Exam: 21:22 Constitutional: This is a well developed, well nourished patient who is awake, alert, qian and in no acute distress. Head/Face: Normocephalic, atraumatic. Eyes: Pupils equal round and reactive to light, extra-ocular motions intact. Lids and lashes normal. Conjunctiva and sclera are non-icteric and not injected. Cornea within normal limits. Periorbital areas with no swelling, redness, or edema. ENT: Nares patent. No nasal discharge, no septal abnormalities noted. Tympanic membranes are normal and external auditory canals are clear. Oropharynx with no redness, swelling, or masses, exudates, or evidence of obstruction, uvula midline. Mucous membranes moist. Neck: Trachea midline, no thyromegaly or masses palpated, and no cervical lymphadenopathy. Supple, full range of motion without nuchal rigidity, or vertebral point tenderness. No Meningismus. Chest/axilla: Normal chest wall appearance and motion. Nontender with no deformity. No lesions are appreciated. Cardiovascular: Regular rate and rhythm with a normal S1 and S2. No gallops, murmurs, or rubs. Normal PMI, no JVD. No pulse deficits. Respiratory: Lungs have equal breath sounds bilaterally, clear to auscultation and percussion. No rales, rhonchi or wheezes noted. No increased work of breathing, no retractions or nasal flaring. Abdomen/GI: Soft, non-tender, with normal bowel sounds. No distension or tympany. No guarding or rebound. No evidence of tenderness throughout. Back: No spinal tenderness. No costovertebral tenderness. Full range of motion. Skin: Warm, dry with normal turgor. Normal color with no rashes, no lesions, and no evidence of cellulitis. MS/ Extremity: Pulses equal, no cyanosis. Neurovascular intact. Full, normal range of motion. Neuro: Awake and alert, GCS 15, oriented to person, place, time, and situation. Cranial nerves II-XII grossly intact. Motor strength 5/5 in all extremities. Sensory grossly intact. Cerebellar exam normal. Normal gait. Psych: Awake, alert, with orientation to person, place and time. Behavior, mood, and affect are within normal limits. 21:22 Neck: External neck: is normal, C-spine: appears grossly normal, no acute changes, Thyroid: appears normal, no acute changes, Trachea: is midline with no obvious abnormalities, no acute changes, ROM/movement: is normal, Lymph nodes: no appreciated lymphadenopathy. 21:22 Chest/axilla: Exam negative for 21:22 Chest/axilla: Exam negative for acute changes. [facility] 22:17 ECG was reviewed by the Attending Physician. [facility] Vital Signs: 21:04 BP 167 / 88; Pulse 66; Resp 16 S; Temp 97.9(O); Pulse Ox 100% on R/A; Weight 83.91 kg bb (R); Height 5 ft. 4 in. (162.56 cm) (R); Pain 5/10; 22:45 BP 124 / 65; Pulse 67; Resp 16; Pulse Ox 97% on R/A; jb4 05/01 00:00 BP 129 / 77; Pulse 70; Resp 16; Pulse Ox 99% on R/A; jb4 04/30 21:04 Body Mass Index 31.75 (83.91 kg, 162.56 cm) MDM: 04/30 21:09 Patient medically screened. [facility] 21:26 Differential diagnosis: Cervical Raiculopathy cervical strain. Data reviewed: [facility] signs, nurses notes, lab test result(s), EKG, radiologic studies, CT scan, plain films. Data interpreted: cafeteria monitor: rate is 66 beats/min, rhythm is regular, Pulse oximetry: on room air is 66 %. Test interpretation: by ED physician or midlevel provider: ECG, plain radiologic studies. 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 04/30 21:21 Order name: CBC with Diff [facility] 04/30 21:21 Order name: Comprehensive Metabolic Panel [facility] 04/30 21:21 Order name: Sed Rate [facility] 04/30 21:22 Order name: CBC with Automated Diff [facility] 04/30 21:22 Order name: Comprehensive Metabolic Panel; Complete Time: 22:40 [facility] 04/30 21:22 Order name: Sedimentation Rate, [place] [facility] 04/30 21:21 Order name: CT Head Angio [facility] 04/30 21:21 Order name: CT Head Brain wo Cont [facility] 04/30 21:21 Order name: Chest Single View XRAY [facility] 04/30 21:25 Order name: Neck Angio [facility] 04/30 21:41 Order name: Urine Dipstick--Ancillary (enter results); Complete Time: 22:40 mt 04/30 21:41 Order name: Urine --Ancillary (enter results); Complete Time: 22:40 mt 04/30 21:56 Order name: Urine Culture [facility] 04/30 21:21 Order name: EKG; Complete Time: 21:22 [facility] 04/30 21:21 Order name: Urine Dipstick-Ancillary (obtain specimen); Complete Time: 21:55 [facility] 04/30 21:33 Order name: Urine Test (obtain specimen); Complete Time: 21:55 qian EC:17 Rate is 73 beats/min. Rhythm is regular. QRS [place] is Normal. [place] interval is normal. QRS qian interval is normal. QT interval is normal. No Q waves. T waves are Normal. No ST changes noted. Clinical impression: NSR w/ Non-specific ST/T Changes and No evidence of ischemia. Interpreted by me. Reviewed by me. Administered Medications: 21:55 Drug: TORadol 30 mg Route: IVP; Site: right antecubital; jb4 22:30 Follow up: Response: No adverse reaction; Pain is decreased jb4 21:55 Drug: Benadryl 25 mg Route: IVP; Site: right antecubital; jb4 22:30 Follow up: Response: No adverse reaction; Pain is decreased jb4 21:55 Drug: Reglan 10 mg Route: IVP; Site: right antecubital; jb4 22:30 Follow up: Response: No adverse reaction; Pain is decreased jb4 22:29 Drug: Rocephin 1 grams Route: IV; Rate: per protocol; Site: right antecubital; jb4 22:32 Follow up: IV Status: Completed infusion; IV Intake: 10ml jb4 23:00 Follow up: Response: No adverse reaction jb4 Disposition: 04/30/20 23:26 Discharged to Home. Impression: Strain of muscle, fascia and tendon at neck level, Headache, Urinary tract infection, site not specified. - Condition is Stable. - Discharge Instructions: General Headache Without Cause, Muscle Strain, Urinary Tract Infection, Adult, Urinary Tract Infection, Adult, [id number], Cervical Sprain, Ykye-kn-[id number], General Headache Without Cause, Ewaz-gr-Iics. - Prescriptions for Fioricet with Codeine 50- 325-40-30 mg Oral capsule - take 1 capsule by ORAL route every 4 hours as needed not to exceed 6 capsules per 24hrs; 20 capsule. Cipro 250 mg Oral Tablet - take 1 tablet by ORAL route every 12 hours; 14 tablet. - Medication Reconciliation Form, Thank You Letter, Antibiotic Education, Prescription Opioid Use form. - Follow up: Private Physician; When: 2 - 3 days; Reason: Recheck today's complaints, Continuance of care, Re-evaluation by your physician. Follow up: Ciaran Figueroa; When: 2 - 3 days; Reason: Recheck today's complaints, Re-evaluation by your physician. - Problem is new. - Symptoms have improved. Signatures: Dispatcher [employer] Jere Levy MD MD cha Ballard, Brenda, RN RN Dayron Samano RN RN jb4 Corrections: (The following items were deleted from the chart) 05/01 00:29 04/30 23:26 04/30/2020 23:26 Discharged to Home. Impression: Strain of muscle, fascia jb4 and tendon at neck level; Headache; Urinary tract infection, site not specified. Condition is Stable. Discharge Instructions: General Headache Without Cause, Muscle Strain, Cervical Sprain, [id number], General Headache Without Cause, Qxpe-[id number]-Xwhu, Urinary Tract Infection, Adult, Urinary Tract Infection, Adult, Ojkx-gw-Dltf. Prescriptions for Fioricet with Codeine [id number] mg Oral capsule - take 1 capsule by ORAL route every 4 hours as needed not to exceed 6 capsules per 24hrs; 20 capsule, Cipro 250 mg Oral Tablet - take 1 tablet by ORAL route every 12 hours; 14 tablet. and Forms are Medication Reconciliation Form, Thank You Letter, Antibiotic Education, Prescription Opioid Use. Follow up: Private Physician; When: 2 - 3 days; Reason: Recheck today's complaints, Continuance of care, Re-evaluation by your physician. Follow up: Ciaran Figueroa; When: 2 - 3 days; Reason: Recheck today's complaints, Re-evaluation by your physician. Problem is new. Symptoms have improved. qian
[2020-05-01 03:07] VITALS: TEMP 97.9
[2020-05-01 03:09] VITALS: BP 129/77; O2SAT 99
--- NOTE | 2020-05-01 08:25 | RAD REPORT ---
EXAM DESCRIPTION: RAD - Chest Single View - 04/30/2020 9:41 pm CLINICAL HISTORY: COUGH COMPARISON: September 2017 TECHNIQUE: AP portable chest image was obtained 04/30/2020 9:41 pm . FINDINGS: Lung volumes are low with clear lung burgess. No failure or volume overload. Heart and vasc ulature are normal. No measurable pleural effusion and no pneumothorax. No acute bony abnormality see n. No acute aortic findings suspected. IMPRESSION: No acute cardiopulmonary process. No significant change from comparison.
--- NOTE | 2020-05-01 11:13 | RAD REPORT ---
EXAM DESCRIPTION: CT - Head angio - 05/01/2020 6:22 am CLINICAL HISTORY: DIZZINESS COMPARISON: None. 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 MIP reconstructions were generated. Stenoses are calculated by NASCET criteria. FINDINGS: Intracranially the cavernous segments of the internal carotid arteries are patent and symm etric bilaterally. Vertebral basilar system within normal limits for age. No aneurysm identified within the [place]. Anterior, middle, and posterior cerebral circulations patent and symmetric bilaterally. Dural sinuses are well opacified and without filling defect. IMPRESSION: Unremarkable CTA of the brain without evidence of hemodynamically significant stenosis, aneurysm or AVM. Electronically signed by: Zay Strong MD 04/30/2020 11:12 PM DRUG ROOM OPERATOR Due to temporary technical issues with the PACS/Fluency reporting system, reports are being signed by the in house radiologist without review as a courtesy to ensure prompt reporting. The interpreting r adiologist is fully responsible for the content of the report.
--- NOTE | 2020-05-01 11:15 | RAD REPORT ---
EXAM DESCRIPTION: CT - Head Brain Wo Cont - 05/01/2020 6:22 am CLINICAL HISTORY: HEADACHE COMPARISON: None. 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 FINDINGS: There is no acute hemorrhage, mass effect or midline shift. Hall-white differentiation is preserved. There is no hydrocephalus. There is no significant volume loss for age. The calvarium is intact. Orbits and globes are unremarkable. The paranasal sinuses are clear. Mastoid air cells are clear. IMPRESSION: No acute intracranial findings. 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 The interpreting r adiologist is fully responsible for the content of the report.
--- NOTE | 2020-05-01 11:15 | RAD REPORT ---
EXAM DESCRIPTION: CT - Neck Angio - 05/01/2020 6:21 am CLINICAL HISTORY: Headache COMPARISON: None. TECHNIQUE: CT NECK ANGIOGRAPHY WITH IV CONTRAST on 04/30/2020 9:24 PM LOGISTICS LEAD This exam was performed according to our departmental dose-optimization program, which includes autom ated exposure control, adjustment of the mA and/or kV according to patient size and/or use of iterati ve reconstruction technique. MIP reconstructions were generated. Stenoses are calculated by NASCET criteria. FINDINGS: The visualized aortic arch and origins of the great vessels unremarkable. The common carotid arteries are patent and symmetric bilaterally. No hemodynamically significant stenosis is observed at the common carotid bifurcations or origins of the internal carotid arteries bilaterally. Vertebral arteries are unremarkable without evidence of pseudoaneurysm, hemodynamically significant s tenosis, or dissection. IMPRESSION: Unremarkable CT angiogram of the neck for age without dissection or hemodynamically sign ificant stenosis. CAROTID STENOSIS REFERENCE USING NASCET CRITERIA: % ICA stenosis = (1 - narrowest ICA diameter/diameter of distal cervical ICA) x 100. Mild - Moderate - 50-69% stenosis. Severe - 70-94% stenosis. Near occlusion - 95-99% stenosis. Occluded - 100% stenosis. Electronically signed by: Zay Strong MD 04/30/2020 11:15 PM LOGISTICS LEAD Due to temporary technical issues with the PACS/Fluency reporting system, reports are being signed by the in house radiologist without review as a courtesy to ensure prompt reporting. The interpreting r adiologist is fully responsible for the content of the report.
--- NOTE | 2020-05-03 07:49 | EKG ---
Test Date: 2020-04-30 Test Time: 21:58:45 Software Product Specialist: MEASUREMENT RESULTS: Intervals: Rate: 73 RI: 140 QRSD: 82 QT: 420 QTc: 462 [place]: P: 72 RI: 140 QRS: -30 T: 43 INTERPRETIVE STATEMENTS: Normal sinus rhythm Left axis deviation Inferior infarct, age undetermined Cannot rule out Anterior infarct, age undetermined Abnormal ECG Compared to ECG 09/23/2017 15:42:56 No significant changes Electronically Signed On 05-03-20 07:41:46 ETL DEVELOPER by Marcus Solis
== END 2020-05-01 00:29 | disposition home or self-care (01) ==
LOC: ER 20:38
DX: S16.1XXA Strain of muscle, fascia and tendon at neck level, initial encounter (principal); I10 Essential (primary) hypertension; N39.0 Urinary tract infection, site not specified; X58.XXXA Exposure to other specified factors, initial encounter
CPT/HCPCS: 93005; 87088; 85025; 87086; 36415; 81025; 85652; 81003; 80053; 70450; 70496; 70498; 71045; 96375; 96374; 99284; Q9967; J2765; J1200; J0696